=== PATIENT | male | born 1945 | race Caucasian/White ===

== ENCOUNTER → 2017-10-22 10:31 | Outpatient (CLI) | payer OTHER ==
[2014-10-13 12:39] VITALS: BMI 42.2
[~2017-10-22 10:31] MED LIST: ALEVE220 MG PO; AMBIEN10 MG PO; BAYER CHEWABLE81 MG PO; CARAFATE1 G; COZAAR50 MG PO; CYMBALTA60 MG PO; HUMULIN R100 U/ML SC; LANTUS INSULIN10 ML SQ; NORVASC10 MG PO; PRAVACHOL20 MG PO; PRILOSEC20 MG PO
[2017-10-22 11:53] LABS: BASOPHILS 0.3 % (0-2); HEMATOCRIT 42.7 % (42.0-54.0); HEMOGLOBIN 14.4 g/dL (13.5-17.5); IMMATURE GRANULOCYTES 0.3 % (0-5); LYMPHOCYTES 47.2 % (15-50); MCH 30.5 pg (26.0-34.0); MCHC 33.7 g/dL (31.0-37.0); MCV 90.5 fL (80.0-100.0); MEAN PLATELET VOLUME 9.2 fL (7.4-10.4); NEUTROPHILS 43.2 % (40-80); PLATELET COUNT 197 10x3/uL (130-400); RBC 4.72 10x6/uL (4.20-6.10); RDW 13.4 % (11.5-14.5); WBC 11.5 10x3/uL (4.8-10.8)
== END | disposition home or self-care (01) ==
LOC: D.LAB 10:31
PROVIDERS: Orthopaedic Surgery
DX: Z85.6 Personal history of leukemia (principal)

== ENCOUNTER 2017-12-27 00:26 | Emergency (ER) | payer OTHER, BC ==
[~2017-12-27] VITALS: Ht 172.7 cm; Wt 122.5 kg
[2017-12-27 00:39] VITALS: Ht 172.7 cm; Wt 122.5 kg
[2017-12-27] MEDS ORDERED: HCTZ25 MG (00:42)
[2017-12-27 01:56] LABS: BASOPHILS 0.1 % (0-2); EOSINOPHILS 2.2 % (0-7); HEMATOCRIT 42.4 % (42.0-54.0); HEMOGLOBIN 14.4 g/dL (13.5-17.5); IMMATURE GRANULOCYTES 0.2 % (0-5); LYMPHOCYTES 46.3 % (15-50); MCH 31.2 pg (26.0-34.0); MCV 91.8 fL (80.0-100.0); MEAN PLATELET VOLUME 10.6 fL (7.4-10.4); MONOCYTES 7.4 % (2-11); NEUTROPHILS 43.8 % (40-80); PLATELET COUNT 196 10x3/uL (130-400); RBC 4.62 10x6/uL (4.20-6.10); RDW 14.1 % (11.5-14.5); WBC 13.5 10x3/uL (4.8-10.8)
[2017-12-27 02:12] LABS: ALBUMIN 3.2 g/dL (3.4-5.0); ALKALINE PHOSPHATASE 87 U/L (46-116); ALT (SGPT) 24 U/L (10-68); BILIRUBIN - TOTAL 0.33 mg/dL (0.2-1.3); CALC OSMOLALITY 288 mosm/kg (275-300); CALCIUM 8.7 mg/dL (8.5-10.1); CHLORIDE - SERUM 107 mmol/L (98-107); CREATININE - SERUM 1.2 mg/dL (0.6-1.3); POTASSIUM - SERUM 3.7 mmol/L (3.5-5.1); SODIUM 144 mmol/L (136-145); UREA NITROGEN 22 mg/dL (7-18); eGFR NON AFRICAN AMERICAN 63 mL/min (90-120)
[2017-12-27 02:13] LABS: GLUCOSE 72 mg/dL (74-106)
[2017-12-27 02:14] LABS: KETONE - SERUM NEGATIVE (NEGATIVE)
[2017-12-27 04:40] VITALS: BP 159/87
== END 2017-12-27 04:41 | disposition home or self-care (01) ==
LOC: D.ER 00:26
PROVIDERS: Family Medicine
DX: T38.3X1A Poisoning by insulin and oral hypoglycemic [antidiabetic] drugs, accidental (unintentional), initial encounter (principal); Y92.019 Unspecified place in single-family (private) house as the place of occurrence of the external cause; E11.9 Type 2 diabetes mellitus without complications; I10 Essential (primary) hypertension

== ENCOUNTER → 2018-01-27 12:01 | Outpatient (CLI) | payer MEDICARE, BC ==
[2017-12-27 00:39] VITALS: BMI 42.2
[~2018-01-27 12:01] MED LIST changes: +DURICEF500 MG PO; +HCTZ25 MG; +NOVOLIN N100 U/ML SQ; +OXYCODONE HCL5 MG PO; +VISTARIL50 MG PO
== END | disposition home or self-care (01) ==
LOC: D.MRI 12:01
DX: M25.511 Pain in right shoulder (principal)

== ENCOUNTER → 2018-02-05 10:27 | Outpatient (CLI) | payer MEDICARE, BC ==
[2017-12-27 00:39] VITALS: BMI 42.2
== END | disposition home or self-care (01) ==
LOC: D.LABREF 10:27
DX: M19.011 Primary osteoarthritis, right shoulder (principal); Z11.8 Encounter for screening for other infectious and parasitic diseases

== ENCOUNTER 2018-02-27 05:45 | Inpatient (IN) | payer MEDICARE, BC ==
[2018-02-26 10:20] LABS: APTT 25.6 SECONDS (22.8-39.4); INR 1.04 (0.85-1.17); PROTIME 13.2 SECONDS (11.6-15.0)
[2018-02-26 10:31] LABS: ANION GAP 9.6 mmol/L (8-16); CALCIUM 8.4 mg/dL (8.5-10.1); CARBON DIOXIDE 29.8 mmol/L (21.0-32.0); CREATININE - SERUM 1.4 mg/dL (0.6-1.3); POTASSIUM - SERUM 4.4 mmol/L (3.5-5.1)
[2018-02-26 10:35] LABS: APPEARANCE CLEAR (CLEAR); BILIRUBIN NEGATIVE (NEGATIVE); COLOR YELLOW (YELLOW); GLUCOSE NEGATIVE (NEGATIVE); KETONE NEGATIVE (NEGATIVE); NITRITE NEGATIVE (NEGATIVE); PROTEIN NEGATIVE (NEGATIVE); SPECIFIC GRAVITY 1.015 (1.005-1.020); UROBILINOGEN NORMAL (NORMAL)
[2018-02-26 10:44] LABS: HEMATOCRIT 44.2 % (42.0-54.0); HEMOGLOBIN 14.5 g/dL (13.5-17.5); MCH 30.5 pg (26.0-34.0); MCHC 32.8 g/dL (31.0-37.0); MCV 93.1 fL (80.0-100.0); MEAN PLATELET VOLUME 9.7 fL (7.4-10.4); PLATELET COUNT 195 10x3/uL (130-400); RBC 4.75 10x6/uL (4.20-6.10); RDW 13.5 % (11.5-14.5); WBC 12.7 10x3/uL (4.8-10.8)
[2018-02-26 12:06] LABS: EOSINOPHILS 2 % (0-7); LYMPHOCYTES 50 % (15-50); MONOCYTES 2 % (2-11); NEUTROPHILS 45 % (40-80); PLATELET ESTIMATE NORMAL
[~2018-02-27] VITALS: Ht 172.7 cm; Wt 122.7 kg
--- NOTE | ~2018-02-27 | OP ---
PATIENT NAME: KEO REED MEDICAL RECORD: [id number] :47 LOCATION:[id number] ADMISSION DATE:02/27/18 SURGEON: CARL KRUGER DO DATE OF OPERATION: 02/27/2018 PROCEDURE PERFORMED: Right reverse total shoulder arthroplasty. PREOPERATIVE DIAGNOSIS: Right rotator cuff arthropathy of the right shoulder. POSTOPERATIVE DIAGNOSIS: Right rotator cuff arthropathy of the right shoulder. INDICATIONS: Ms. Reed is a 72-year-old male who presented to my office with right shoulder pain, had it for some time. He complained of pain and inability to lift or do any work with that shoulder. He said it had been pain for quite some time and he tried some nonoperative management, which he failed. After seeing his x-rays and MRI, seeing that his rotator cuff had been torn for quite some time and a high-riding humeral head as well, I informed him that we could do a reverse total shoulder arthroplasty and he was informed of the risks and benefits of the procedure including infection, bleeding, need for further surgery and he was okay with those risks and consented to the procedure. DESCRIPTION OF THE PROCEDURE: The patient was given a block preoperatively by anesthesia and taken to the operative suite, laid in supine position, given general anesthetic and LMA was placed. Two grams Ancef were given and then after the incision was made, clindamycin was given 900 mg. The right shoulder was prepped and draped in a sterile fashion and the timeout was performed, and everyone was in agreeance with the correct side, site, patient and procedure. After the time-out was performed, the patient had been prepped and draped. Incision began in the deltopectoral interval with a 10 blade and then a plasma blade. Careful dissection made down to the cephalic vein, which was taken medially, it did have a rent in it and it was tied off. Once this was tied off, further exposure of the shoulder continued and the clavipectoral fascia was incised. Then, the bicep tendon was encountered and opened the bicipital groove. The proximal insertion of the pec was released for a cm and the bicep tendon was tagged to the stump. The subscapularis tendon was then tagged and peeled off of the lesser tuberosity of the humerus and humeral head was then exposed. After the humeral head was exposed, the guide was placed intramedullary and the humeral head was resected. Once the humeral head was resected, the adhesions were broken up off the anterior scapula with a Nugent between the scapula and the subscapularis and the glenoid was exposed. The center pin was then entered and the overdrill was used and a reaming drill was used and then a tap was used. The baseplate was then put into place after the glenoid had been prepared. The labrum and biceps tendon that remained had all been removed prior to this with good exposure of the glenoid. Once the baseplate was put in, we used a 25 baseplate with a 30-mm center screw and then a superior and inferior screw 4.5-mm locking screw, 26 superior and 20-mm inferior. A standard glenosphere was put into place. The humerus was then exposed and broached up to a #5. The 5 was used and then trialled with a 6 tray and a 6 poly seemed to give the best fit with the amount of tension needed on the conjoined tendon and the deltoid. This was then inserted and the shoulder was reduced, had good motion. The wound was thoroughly irrigated several times throughout the procedure and a drain was placed after Surgicel beads were placed into the wound and the deltopectoral interval was loosely closed with 0 Vicryl in a [id number]-qa-[id number] fashion and then 2-0 Vicryl was closed in inverted interrupted fashion on the skin, 4-0 Monocryl ran on that and then Prineo on the OPERATIVE REPORT [id number] KEO REED skin. The drain was stitched and also with a nylon stitch. Adaptic, 4 x 4s, ABD were then placed over the wound. The patient was put in a sling and awakened and taken to recovery in stable condition. Blood loss was approximately 400 mL. COMPLICATIONS: None. TRANSINT:[id number] Voice Confirmation ID: [id number] DOCUMENT ID: [id number] CARL KRUGER DO at 1528 CC: [id number] DICTATION DATE: 02/27/18 1143 CHIPPER: 02/27/18 [id number] [facility] [place] [id number] [place] [address]
[~2018-02-27 05:45] MED LIST changes: -DURICEF500 MG PO; -OXYCODONE HCL5 MG PO; -VISTARIL50 MG PO
[2018-02-27 07:19] VITALS: BP 151/71; BMI 40.8
[2018-02-27 12:50] VITALS: BP 145/60
[2018-02-27 13:25] VITALS: BP 108/55; Ht 172.7 cm; Wt 122.7 kg
[2018-02-27 16:03] VITALS: BP 134/78
[2018-02-27 18:43] LABS: BASOPHILS 0.1 % (0-2); EOSINOPHILS 0.2 % (0-7); HEMATOCRIT 37.9 % (42.0-54.0); HEMOGLOBIN 12.2 g/dL (13.5-17.5); IMMATURE GRANULOCYTES 0.2 % (0-5); LYMPHOCYTES 32.8 % (15-50); MCH 29.9 pg (26.0-34.0); MCHC 32.2 g/dL (31.0-37.0); MCV 92.9 fL (80.0-100.0); MEAN PLATELET VOLUME 9.6 fL (7.4-10.4); MONOCYTES 6.7 % (2-11); PLATELET COUNT 178 10x3/uL (130-400); RBC 4.08 10x6/uL (4.20-6.10); RDW 13.7 % (11.5-14.5)
[2018-02-27 19:22] LABS: ANION GAP 15.6 mmol/L (8-16); BILIRUBIN - TOTAL 0.42 mg/dL (0.2-1.3); CALCIUM 7.1 mg/dL (8.5-10.1); CARBON DIOXIDE 22.4 mmol/L (21.0-32.0); CREATININE - SERUM 1.3 mg/dL (0.6-1.3); PROTEIN - SERUM 5.7 g/dL (6.4-8.2)
[2018-02-27 20:00] VITALS: BP 132/63
[2018-02-28] VITALS: BP 140/63
[2018-02-28 04:00] VITALS: BP 122/54
[2018-02-28 07:06] LABS: BASOPHILS 0.1 % (0-2); EOSINOPHILS 0.7 % (0-7); HEMATOCRIT 36.4 % (42.0-54.0); HEMOGLOBIN 11.8 g/dL (13.5-17.5); IMMATURE GRANULOCYTES 0.2 % (0-5); LYMPHOCYTES 30.6 % (15-50); MCH 30.1 pg (26.0-34.0); MCHC 32.4 g/dL (31.0-37.0); MCV 92.9 fL (80.0-100.0); MEAN PLATELET VOLUME 9.7 fL (7.4-10.4); MONOCYTES 9.8 % (2-11); NEUTROPHILS 58.6 % (40-80); PLATELET COUNT 162 10x3/uL (130-400); RBC 3.92 10x6/uL (4.20-6.10); RDW 13.6 % (11.5-14.5); WBC 16.4 10x3/uL (4.8-10.8)
[2018-02-28 07:27] LABS: ALBUMIN 2.7 g/dL (3.4-5.0); ANION GAP 12.5 mmol/L (8-16); BILIRUBIN - TOTAL 0.86 mg/dL (0.2-1.3); CARBON DIOXIDE 23.9 mmol/L (21.0-32.0); CREATININE - SERUM 1.3 mg/dL (0.6-1.3); POTASSIUM - SERUM 4.4 mmol/L (3.5-5.1); PROTEIN - SERUM 5.9 g/dL (6.4-8.2)
[2018-02-28 07:59] VITALS: BP 126/52
[2018-02-28] MEDS ORDERED: OXYCODONE HCL5 MG PO (08:20)
[2018-02-28] MEDS ORDERED: VISTARIL50 MG PO (08:21)
[2018-02-28] MEDS ORDERED: DURICEF500 MG PO (08:21)
[2018-02-28 16:05] VITALS: BP 130/63
== END 2018-02-28 17:48 | disposition home or self-care (01) | DRG 483 ==
LOC: D.SDCHOLD 05:45 → D.MS 05:45 → D.SDCHOLD 07:30 → D.MS 12:49
PROVIDERS: Family Medicine; Orthopaedic Surgery
PROC: 0RRJ00Z Replacement of Right Shoulder Joint with Reverse Ball and Socket Synthetic Substitute, Open Approach (ICD-10-PCS; principal; 2018-02-27 08:30)
DX: M75.101 Unspecified rotator cuff tear or rupture of right shoulder, not specified as traumatic (principal); Z68.41 Body mass index [BMI] 40.0-44.9, adult; C95.90 Leukemia, unspecified not having achieved remission; M19.011 Primary osteoarthritis, right shoulder; E66.9 Obesity, unspecified; E11.65 Type 2 diabetes mellitus with hyperglycemia; Z79.4 Long term (current) use of insulin; E78.00 Pure hypercholesterolemia, unspecified; G47.00 Insomnia, unspecified

== ENCOUNTER 2018-03-02 12:02 | Inpatient (IN) | payer MEDICARE, BC ==
[~2018-03-02] VITALS: Ht 172.7 cm; Wt 121.7 kg
[~2018-03-02 12:02] MED LIST changes: +DURICEF500 MG PO; +OXYCODONE HCL5 MG PO; +VISTARIL50 MG PO
[2018-03-02 14:47] LABS: BASOPHILS 0.1 % (0-2); EOSINOPHILS 0.6 % (0-7); HEMATOCRIT 33.3 % (42.0-54.0); HEMOGLOBIN 11.2 g/dL (13.5-17.5); IMMATURE GRANULOCYTES 0.3 % (0-5); LYMPHOCYTES 35.5 % (15-50); MCH 30.7 pg (26.0-34.0); MCHC 33.6 g/dL (31.0-37.0); MCV 91.2 fL (80.0-100.0); MEAN PLATELET VOLUME 9.9 fL (7.4-10.4); MONOCYTES 8.7 % (2-11); NEUTROPHILS 54.8 % (40-80); PLATELET COUNT 175 10x3/uL (130-400); RBC 3.65 10x6/uL (4.20-6.10); RDW 13.4 % (11.5-14.5); WBC 15.2 10x3/uL (4.8-10.8)
[2018-03-02 15:10] LABS: ALBUMIN 2.6 g/dL (3.4-5.0); ANION GAP 12.9 mmol/L (8-16); BILIRUBIN - TOTAL 0.58 mg/dL (0.2-1.3); CALCIUM 7.5 mg/dL (8.5-10.1); CARBON DIOXIDE 24.1 mmol/L (21.0-32.0); CREATININE - SERUM 1.9 mg/dL (0.6-1.3); PROTEIN - SERUM 6.4 g/dL (6.4-8.2)
[2018-03-02 17:39] LABS: UDS - AMPHET NEGATIVE QUAL (NEGATIVE); UDS - BARB NEGATIVE QUAL (NEGATIVE); UDS - BENZO NEGATIVE QUAL (NEGATIVE); UDS - COCAINE NEGATIVE QUAL (NEGATIVE); UDS - OPIATE POSITIVE QUAL (NEGATIVE); UDS - PCP NEGATIVE QUAL (NEGATIVE); UDS - THC NEGATIVE QUAL (NEGATIVE)
[2018-03-02 19:00] VITALS: BP 111/57
[2018-03-02 20:00] VITALS: BP 126/63
[2018-03-02 21:00] VITALS: BP 113/62
[2018-03-02 21:43] VITALS: BP 111/30; BMI 42.4
[2018-03-03 04:33] VITALS: BP 139/59
[2018-03-03 05:25] LABS: BASOPHILS 0.1 % (0-2); EOSINOPHILS 0.8 % (0-7); HEMATOCRIT 30.3 % (42.0-54.0); HEMOGLOBIN 10.1 g/dL (13.5-17.5); IMMATURE GRANULOCYTES 0.3 % (0-5); LYMPHOCYTES 35.6 % (15-50); MCH 30.1 pg (26.0-34.0); MCHC 33.3 g/dL (31.0-37.0); MCV 90.2 fL (80.0-100.0); MEAN PLATELET VOLUME 9.5 fL (7.4-10.4); MONOCYTES 9.4 % (2-11); NEUTROPHILS 53.8 % (40-80); PLATELET COUNT 208 10x3/uL (130-400); RBC 3.36 10x6/uL (4.20-6.10); RDW 13.5 % (11.5-14.5); WBC 14.7 10x3/uL (4.8-10.8)
[2018-03-03 05:52] LABS: ANION GAP 13.1 mmol/L (8-16); CALCIUM 7.4 mg/dL (8.5-10.1); CARBON DIOXIDE 23.8 mmol/L (21.0-32.0); CREATININE - SERUM 1.5 mg/dL (0.6-1.3); POTASSIUM - SERUM 3.9 mmol/L (3.5-5.1)
[2018-03-03 07:43] VITALS: BP 108/60
[2018-03-03 11:24] VITALS: BP 113/59
[2018-03-03 14:33] VITALS: Ht 172.7 cm; Wt 121.7 kg
[2018-03-03 15:27] VITALS: BP 139/78
[2018-03-03 15:34] LABS: % SATURATION 14 % (15-55); IRON 22 ug/dl (35-150); TOTAL IRON BIND CAPACITY 151 ug/dl (260-445); UNSAT IRON BIND CAPACITY 129 ug/dl (150-375)
[2018-03-03 17:01] LABS: APPEARANCE CLEAR (CLEAR); BILIRUBIN NEGATIVE (NEGATIVE); COLOR YELLOW (YELLOW); GLUCOSE NEGATIVE (NEGATIVE); KETONE NEGATIVE (NEGATIVE); NITRITE NEGATIVE (NEGATIVE); PROTEIN TRACE mg/dL (NEGATIVE); SPECIFIC GRAVITY 1.015 (1.005-1.020); UROBILINOGEN NORMAL (NORMAL)
[2018-03-03 17:02] LABS: BACTERIA MANY /hpf (NONE SEEN)
[2018-03-03 20:39] VITALS: BP 108/57
[2018-03-04 04:00] VITALS: BP 140/45
[2018-03-04 04:36] LABS: BASOPHILS 0.1 % (0-2); EOSINOPHILS 1.3 % (0-7); HEMATOCRIT 30.7 % (42.0-54.0); HEMOGLOBIN 10.2 g/dL (13.5-17.5); IMMATURE GRANULOCYTES 0.5 % (0-5); LYMPHOCYTES 32.7 % (15-50); MCH 29.8 pg (26.0-34.0); MCHC 33.2 g/dL (31.0-37.0); MCV 89.8 fL (80.0-100.0); MEAN PLATELET VOLUME 9.2 fL (7.4-10.4); MONOCYTES 8.1 % (2-11); NEUTROPHILS 57.3 % (40-80); PLATELET COUNT 226 10x3/uL (130-400); RBC 3.42 10x6/uL (4.20-6.10); RDW 13.7 % (11.5-14.5)
[2018-03-04 04:45] LABS: ANION GAP 16.6 mmol/L (8-16); CALCIUM 7.4 mg/dL (8.5-10.1); CARBON DIOXIDE 22.6 mmol/L (21.0-32.0); CREATININE - SERUM 1.3 mg/dL (0.6-1.3); POTASSIUM - SERUM 4.2 mmol/L (3.5-5.1)
[2018-03-04 07:36] VITALS: BP 163/55
[2018-03-04 08:21] LABS: FOLATE (FOLIC ACID) - SERUM 2.8 ng/mL (>3.0)
[2018-03-04 11:30] VITALS: BP 148/45
[2018-03-04 15:08] VITALS: BP 152/30
[2018-03-04 21:17] VITALS: BP 144/48
[2018-03-05 06:35] VITALS: BP 134/50
[2018-03-05 07:49] VITALS: BP 135/51
[2018-03-05 11:28] VITALS: BP 135/64
== END 2018-03-05 12:59 | disposition home health service (06) | DRG 917 ==
LOC: D.ER 12:02 → D.EDHOLD 17:47 → OBSVTIME 17:48 → D.M2 18:19
PROVIDERS: Emergency Medicine; Internal Medicine Nephrology
DX: T40.601A Poisoning by unspecified narcotics, accidental (unintentional), initial encounter (principal); G92 Toxic encephalopathy; J96.01 Acute respiratory failure with hypoxia; N17.9 Acute kidney failure, unspecified; C95.90 Leukemia, unspecified not having achieved remission; W19.XXXA Unspecified fall, initial encounter; E78.5 Hyperlipidemia, unspecified; I10 Essential (primary) hypertension; D50.9 Iron deficiency anemia, unspecified; E11.65 Type 2 diabetes mellitus with hyperglycemia; E11.42 Type 2 diabetes mellitus with diabetic polyneuropathy

== ENCOUNTER 2018-03-26 12:13 | Emergency (ER) | payer MEDICARE, BC ==
[~2018-03-26] VITALS: Ht 172.7 cm; Wt 123.4 kg
[2018-03-26 12:14] VITALS: Ht 172.7 cm; Wt 123.4 kg
[2018-03-26 13:11] LABS: ALBUMIN 3.1 g/dL (3.4-5.0); ALKALINE PHOSPHATASE 111 U/L (46-116); ALT (SGPT) 21 U/L (10-68); BILIRUBIN - TOTAL 0.41 mg/dL (0.2-1.3); CALC OSMOLALITY 283 mosm/kg (275-300); CALCIUM 8.5 mg/dL (8.5-10.1); CARBON DIOXIDE 23.9 mmol/L (21.0-32.0); CHLORIDE - SERUM 107 mmol/L (98-107); CREATININE - SERUM 1.4 mg/dL (0.6-1.3); POTASSIUM - SERUM 4.1 mmol/L (3.5-5.1); PROTEIN - SERUM 6.9 g/dL (6.4-8.2); SODIUM 142 mmol/L (136-145); UREA NITROGEN 18 mg/dL (7-18); eGFR NON AFRICAN AMERICAN 53 mL/min (90-120)
[2018-03-26 13:13] LABS: GLUCOSE 84 mg/dL (74-106)
[2018-03-26 13:15] LABS: BASOPHILS 0.1 % (0-2); EOSINOPHILS 1.1 % (0-7); HEMATOCRIT 38.8 % (42.0-54.0); HEMOGLOBIN 12.6 g/dL (13.5-17.5); IMMATURE GRANULOCYTES 0.3 % (0-5); LYMPHOCYTES 40.4 % (15-50); MCH 30.3 pg (26.0-34.0); MCHC 32.5 g/dL (31.0-37.0); MCV 93.3 fL (80.0-100.0); MONOCYTES 6.7 % (2-11); NEUTROPHILS 51.4 % (40-80); PLATELET COUNT 218 10x3/uL (130-400); RBC 4.16 10x6/uL (4.20-6.10); WBC 11.7 10x3/uL (4.8-10.8)
[2018-03-26 13:24] LABS: CREATINE KINASE 51 UL (21-232); PRO BNP 119 pg/mL (0-125); TROPONIN-I < 0.017 ng/mL (0.000-0.060)
[2018-03-26 14:36] LABS: UDS - AMPHET NEGATIVE QUAL (NEGATIVE); UDS - BARB NEGATIVE QUAL (NEGATIVE); UDS - BENZO POSITIVE QUAL (NEGATIVE); UDS - COCAINE NEGATIVE QUAL (NEGATIVE); UDS - OPIATE NEGATIVE QUAL (NEGATIVE); UDS - PCP NEGATIVE QUAL (NEGATIVE); UDS - THC NEGATIVE QUAL (NEGATIVE)
[2018-03-26 14:44] LABS: APPEARANCE CLOUDY (CLEAR); BILIRUBIN NEGATIVE (NEGATIVE); COLOR DK YELLOW (YELLOW); GLUCOSE NEGATIVE (NEGATIVE); KETONE NEGATIVE (NEGATIVE); NITRITE NEGATIVE (NEGATIVE); PROTEIN 2+ mg/dL (NEGATIVE); UROBILINOGEN NORMAL (NORMAL)
[2018-03-26 14:47] LABS: AMORPHOUS SEDIMENT <1+ /lpf (NONE SEEN); BACTERIA MODERATE /hpf (NONE SEEN); EPITHELIAL CELLS 0-5 /hpf (0-5); MUCUS <1+ /lpf (NONE SEEN); WHITE CELLS - URINE 0-5 /hpf (0-5)
[2018-03-26 15:23] LABS: D-DIMER-QUANTITATIVE 8.06 ug/mLFEU (0.20-0.54)
[2018-03-26 15:50] LABS: APTT 25.2 SECONDS (22.8-39.4); INR 1.06 (0.85-1.17); PROTIME 13.4 SECONDS (11.6-15.0)
[2018-03-26 17:26] VITALS: BP 103/65
== END 2018-03-26 17:29 | disposition other institution (70) ==
LOC: D.ER 12:13
PROVIDERS: Family Medicine
DX: G40.909 Epilepsy, unspecified, not intractable, without status epilepticus (principal); I45.10 Unspecified right bundle-branch block; I48.91 Unspecified atrial fibrillation; I49.3 Ventricular premature depolarization; E11.9 Type 2 diabetes mellitus without complications; I10 Essential (primary) hypertension